=== PATIENT | female | born 1960 | race Caucasian/White ===

== ENCOUNTER 2019-06-05 16:43 | Inpatient (IN) | payer BC ==
[~2019-06-05] VITALS: Ht 160 cm; Wt 90.7 kg
--- NOTE | 2019-06-05 16:55 | NUR ---
PATIENT TO ER #4 AND PLACED ON MEDICAL EDUCATOR, SAO2 AND ABP
--- NOTE | 2019-06-05 16:57 | NUR ---
Patient presents to ER C/O Patient A&Ox4, ambulatory to ER, febrile, skin pink and warm, nausea, vomiting, denies diarrhea, pain 5/10, placed on pulse-ox monitor and hall monitor upon arrival, temp 102. made Dr. Ponce aware. Patient states she has nausea, vomiting and fever. patient denies other health history.
[2019-06-05 16:59] VITALS: BP_SYST 161
--- NOTE | 2019-06-05 17:00 | NUR ---
BRIDGER Ponce at bedside examining patient.
--- NOTE | 2019-06-05 17:05 | NUR ---
# 20 gauge angiocath placed to left AC . Use of asceptic technique. Opsite placed over site. Blood return noted. Blood for lab drawn from site. Flushed with 10 cc of normal saline. No evidence of infiltration noted. Patient tolerated well. Medicated per MD orders. IVF infusing with no s/s of infiltration at this time. Will cont to monitor
[2019-06-05] MEDS ORDERED: NACL 0.9% 1,000 ML IV ONE ×5 (17:15→22:00)
[2019-06-05] MEDS ORDERED: FAMOTIDINE PF 20 MG/2 ML VIAL IVP ONE (17:15)
[2019-06-05] MEDS ORDERED: KETOROLAC TROMETHAMINE 30 MG VIAL IVP ONE (17:15)
[2019-06-05] MEDS ORDERED: ONDANSETRON HCL 4 MG/2 ML VIAL IVP ONE (17:15)
[2019-06-05] MEDS ORDERED: ACETAMINOPHEN 650 MG SUPP.RECT RC ONE ×2 (17:15→17:34)
[2019-06-05 17:27] LABS: BASOPHILS % (AUTO) 0.1 % (0.0-2.0); HEMATOCRIT 40.9 % (36-48); HEMOGLOBIN 13.8 g/dL (12.0-16.0); LYMPHOCYTES # (AUTO) 0.7 K/uL (1.0-5.5); LYMPHOCYTES % (AUTO) 5.8 % (20.5-51.5); MEAN CORPUSCULAR HEMOGLOBIN 31 pg (27-31); MEAN CORPUSCULAR HGB CONC 34 % (32-36); MEAN CORPUSCULAR VOLUME 92 fL (79.0-98.0); MONOCYTES # (AUTO) 0.1 K/uL (0.0-1.0); NEUTROPHILS # (AUTO) 11.4 K/uL (1.8-7.7); NEUTROPHILS % (AUTO) 93.1 % (40.0-70.0); PLATELET COUNT (AUTO) 163 K/uL (130-430); RED BLOOD CELL COUNT(AUTO) 4.47 MIL/uL (4.2-6.2); RED CELL DISTRIBUTION WIDTH 13.8 % (9.0-15.0); WHITE BLOOD COUNT (AUTO) 12.2 K/uL (4.8-10.8)
[2019-06-05 17:38] LABS: CALCIUM 8.8 mg/dL (8.4-11.0); CREATININE 0.92 mg/dL (0.55-1.30)
--- NOTE | 2019-06-05 17:45 | NUR ---
Urine specimen collected and analyzed in ER. Results given to ER .
[2019-06-05 17:46] LABS: ALBUMIN 3.5 g/dL (3.4-4.8); TOTAL BILIRUBIN 0.9 mg/dL (0.0-1.0)
[2019-06-05 18:09] LABS: BILIRUBIN,URINE NEGATIVE (NEGATIVE); BLOOD, URINE 2+ (NEGATIVE); CLARITY/URINE CLOUDY (CLEAR); COLOR,URINE YELLOW (YELLOW); GLUCOSE,URINE NEGATIVE (NEGATIVE); KETONES,URINE NEGATIVE (NEGATIVE); LEUKOCYTE ESTERASE ,URINE 1+ (NEGATIVE); NITRITE, URINE NEGATIVE (NEGATIVE); PROTEIN URINE 1+ (NEGATIVE); UROBILINOGEN,URINE 0.2 (0.2-1.0)
[2019-06-05 18:16] LABS: BACTERIA,URINE FEW /HPF (None Seen); MUCUS,URINE None Seen /LPF (None Seen); WBC,URINE >100 /HPF (0-3)
--- NOTE | 2019-06-05 18:20 | NUR ---
Patient denies taking Home Medications
--- NOTE | 2019-06-05 18:43 | NUR ---
Patient will be admitted to care of DR. PEREYRA. Admitted to MED SURG unit. Will go to room 129B. Belongings list completed. Complete and up to date summary report printed. SBAR report to be given at bedside with opportunity for questions.
--- NOTE | 2019-06-05 19:30 | NUR ---
P 88, B/P 78/56, T 100.1. Pt AAOx4, denies c/o pain or discomfort. NS infusing at 100 mL/hr to patent and secure PIV LAC. Dr. Ponce notified of V/S. Remaining 800 mL NS now infusing at bolus rate.
[2019-06-05] MEDS ORDERED: NACL 0.9% 1,000 ML IV SCH (20:00)
--- NOTE | 2019-06-05 20:04 | NUR ---
P 87, B/P 93/52. Pt denies c/o pain or discomfort. Contacted Dr. Jalloh to update on pt status and V/S. Pt admit status changed to Telemetry, med/surg unit notified.
[2019-06-05] MEDS: NACL 0.9% 1,000 ML IV SCH (20:33)
--- NOTE | 2019-06-05 20:50 | NUR ---
P 91, B/P 84/46. Dr. Jalloh notified. Orders received to administer 1 L NS bolus, transfer to ICU, and consult dr. Salinas for Critical Care. Charge nurse notified.
--- NOTE | 2019-06-05 21:16 | NUR ---
Spoke with Dr. Salinas for Critical Care. New orders received for Zosyn 3.375 Gm IVPB now and q 6hrs, Vancomycin 1 Gm IVPB now, and pharmacy to dose. Order also received to begin Levophed drip and titrate to maintain SBP >90.
[2019-06-05] MEDS ORDERED: VANCOMYCIN HCL 1 GM/NS PREMIX 250 ML IV ONE (21:30)
[2019-06-05] MEDS ORDERED: NOREPINEPHRINE BITARTRATE 4 MG in D5W 246 ML IV PRN ×2 (21:30→21:45)
--- NOTE | 2019-06-05 21:30 | NUR ---
Spoke with Dr. Maria (Covering for Dr. Salinas). Orders received for stat lactic acid and ABG.
--- NOTE | 2019-06-05 21:32 | NUR ---
RT at bedside to obtain ABG.
[2019-06-05] MEDS ORDERED: VANCOMYCIN HCL 1000 MG/VIAL IV ONE (21:39)
[2019-06-05] MEDS ORDERED: NOREPINEPHRINE 4 MG/4 ML VIAL IV ONE (21:39)
[2019-06-05] MEDS ORDERED: PIPERACILLIN/TAZOBACTAM 3.375 GM/VIAL (ZOSYN) IV ONE (21:39)
[2019-06-05] MEDS ORDERED: PIPERACILLIN/TAZO 3.375/DEX-IS 50 ML IV SCH (21:45)
[2019-06-05] MEDS ORDERED: ZOLPIDEM TARTRATE 5 MG TABLET PO PRN (21:45)
[2019-06-05] MEDS ORDERED: DOCUSATE SODIUM 100 MG CAPSULE PO PRN (21:45)
[2019-06-05] MEDS ORDERED: MAGNESIUM SULFATE 50 ML IV PRN (21:45)
[2019-06-05] MEDS ORDERED: MORPHINE 2 MG/ML INJ. SYRINGE IVP PRN ×2 (21:45)
[2019-06-05] MEDS ORDERED: LORazepam 2 MG/ML VIAL IVP PRN (21:45)
[2019-06-05] MEDS ORDERED: MUPIROCIN 2% TOPICAL OINTMENT 22 GM NS PRN (21:45)
--- NOTE | 2019-06-05 21:47 | NUR ---
P 95, B/P 83/42, SPO2 96% RA. Pt denies c/o pain or discomfort. Levophed started at 2 mcg/min to patent and secure PIV LAC.
--- NOTE | 2019-06-05 21:50 | NUR ---
Dr. Maria at bedside speaking with pt.
--- NOTE | 2019-06-05 22:22 | NUR ---
Pt assisted to bedside comode. Pt able to stand, steady gait, denies c/o dizziness.
--- NOTE | 2019-06-05 22:30 | NUR ---
P 78, B/P 86/48, SPO2 97% RA. Levophed drip increased to 4 mcg/min.
[2019-06-05] MEDS: PIPERACILLIN/TAZO 3.375/DEX-IS 50 ML IV SCH (23:01)
--- NOTE | 2019-06-05 23:15 | NUR ---
P 100, B/P 103/46, SPO2 96% RA. Levophed continues to infuse at 4 mcg/min. Pt denies c/o pain or discomfort and no needs verbalized at this time.
--- NOTE | 2019-06-05 23:45 | NUR ---
P 98, B/P 84/55, SPO2 98% RA. Levophed increased to 5 mcg/min. No needs verbalized at this time.
[2019-06-06] VITALS (26 sets, daily range): BP systolic 91–133
--- NOTE | 2019-06-06 00:40 | NUR ---
Patient will be admitted to care of Dr. Jalloh and Dr. Maria. Admitted to ICU unit. Will go to room 4. Belongings list completed. Complete and up to date summary report printed. SBAR report to be given at bedside with opportunity for questions.
--- NOTE | 2019-06-06 00:40 | NUR ---
ADMISSION NOTE PT TRANSFERRED FROM ER VIA GURNEY IN STABLE CONDITION. PT AAOX4 AND ABLE TO VERBALIZE NEEDS. VSS, NO S/S OF ACUTE DISTRESS NOTED. PT ON RA. ST ON MONITOR. R HAND 20G AND LAC 20G PATENT AND INTACT. LEVOPHED DRIP INFUSING @ 5 MCG/MIN. PT DENIES ANY PAIN OR DISCOMFORT AT THIS TIME. HOB ELEVATED, BED IN LOWEST POSITION, CALL LIGHT IN REACH. WILL CONTINUE TO MONITOR PT.
--- NOTE | 2019-06-06 01:00 | NUR ---
TEMPERATURE PT TEMP 102.8. PRN TYLENOL ADMINISTERED AND COOLING MEASURES APPLIED. WILL CONTINUE TO MONITOR PT.
[2019-06-06] MEDS: ACETAMINOPHEN 325 MG TABLET PO PRN (01:10)
[2019-06-06] MEDS: NACL 0.9% 1,000 ML IV SCH ×3 (01:11→19:39)
[2019-06-06] MEDS ORDERED: PIPERACILLIN/TAZOBACTAM 3.375 GM/VIAL (ZOSYN) IV ONE (02:19)
--- NOTE | 2019-06-06 03:40 | NUR ---
NC PT SEEN DESATURATING INTO THE LOW 80s. PT PLACED ON 2L NC AT THIS TIME. O2 SAT 94%. WILL CONTINUE TO MONITOR PT.
--- NOTE | 2019-06-06 04:00 | NUR ---
TEMPERATURE PT TEMPERATURE TRENDING DOWNWARD. CURRENTLY 99.8. WILL CONTINUE TO MONITOR PT.
[2019-06-06] MEDS: PIPERACILLIN/TAZO 3.375/DEX-IS 50 ML IV SCH ×4 (05:04→23:30)
[2019-06-06 05:42] LABS: BASOPHILS % (AUTO) 0.1 % (0.0-2.0); HEMATOCRIT 36.6 % (36-48); HEMOGLOBIN 12.1 g/dL (12.0-16.0); LYMPHOCYTES # (AUTO) 0.8 K/uL (1.0-5.5); MEAN CORPUSCULAR HEMOGLOBIN 31 pg (27-31); MEAN CORPUSCULAR HGB CONC 33 % (32-36); MEAN CORPUSCULAR VOLUME 93 fL (79.0-98.0); MONOCYTES # (AUTO) 0.2 K/uL (0.0-1.0); MONOCYTES % (AUTO) 1.9 % (1.7-9.3); NEUTROPHILS # (AUTO) 12.2 K/uL (1.8-7.7); PLATELET COUNT (AUTO) 122 K/uL (130-430); RED BLOOD CELL COUNT(AUTO) 3.96 MIL/uL (4.2-6.2); RED CELL DISTRIBUTION WIDTH 13.8 % (9.0-15.0); WHITE BLOOD COUNT (AUTO) 13.2 K/uL (4.8-10.8)
[2019-06-06 06:04] LABS: CALCIUM 7.2 mg/dL (8.4-11.0); CREATININE 0.84 mg/dL (0.55-1.30)
--- NOTE | 2019-06-06 06:05 | NUR ---
CONSULTATION PAGED/CALLED Reason for Consultation: Sepsis Person Who was Notified: exchange: Suzi Consulting Physician: Dr Gonzalez Llama Farmer Specialty: ID Ordering Physician:
[2019-06-06 06:07] LABS: POTASSIUM 2.8 mmol/L (3.5-5.1)
[2019-06-06] MEDS: POTASSIUM CHLORIDE 20 MEQ TAB.PRT.SR PO PRN ×2 (06:15→06:53)
--- NOTE | 2019-06-06 06:20 | NUR ---
POTASSIUM K 2.8. K DUR 40 MEQ PRN ORDER FOR K <3.5 ADMINISTERED AT THIS TIME. AWAITING MD CALL BACK TO REPORT CRITICAL RESULTS.
--- NOTE | 2019-06-06 06:23 | NUR ---
DR. DONNA SIMENTAL PAGED AT THIS TIME FOR CRITICAL RESULTS. MESSAGE LEFT ON ANSWERING MACHINE. WILL AWAIT MD CALL BACK.
--- NOTE | 2019-06-06 06:43 | NUR ---
DR. DONNA SIMENTAL MADE AWARE OF CRITICAL LAB RESULTS. ADDITIONAL ORDERS RECEIVED AND WILL BE CARRIED OUT ORDERED. WILL CONTINUE TO MONITOR PT.
[2019-06-06] MEDS ORDERED: POTASSIUM CHLORIDE 20 MEQ TAB.PRT.SR PO ONE (06:45)
--- NOTE | 2019-06-06 07:12 | NUR ---
ENDORSEMENT BEDSIDE REPORT GIVEN TO YOUNG RN USING SBAR APPROACH.
--- NOTE | 2019-06-06 07:15 | NUR ---
Received shift report from night RN using SBAR.
--- NOTE | 2019-06-06 07:45 | NUR ---
Pt A/O x 4. Levophed running at 5mcg/kg/min with NS @ 120. Pt temperature 99.5F. Pt family beside. Bed locked and in lowest position.
--- NOTE | 2019-06-06 08:30 | NUR ---
bedside. Asked Dr Jalloh if order for coagulation study is needed. Per MD no coagulation study needed for prophylaxis Heparin 5000 units therapy. Informed Shaniqua WHITE. Will administer Heparin per MD order.
[2019-06-06] MEDS ORDERED: DEXTROSE 50% JECT 50 ML DISP.SYRIN IVP PRN (08:45)
--- NOTE | 2019-06-06 08:45 | NUR ---
Obtained consent for CT with IV contrast from PT. Son and bedside to translate and confirm information. Copy made an given to PT and Radiology
[2019-06-06] MEDS ORDERED: cefTRIAXone 1 GM in D5W 50 ML IV SCH (09:00)
--- NOTE | 2019-06-06 09:00 | NUR ---
Pt complaining of slight nausea during breakfast. Ate a small amount of jello and went to sleep after. Asked if she wanted Zofran and she said no. Will continue to monitor.
--- NOTE | 2019-06-06 09:15 | NUR ---
Called Dr Staley regarding lab values. Orders received.
[2019-06-06 09:17] LABS: HEMATOCRIT 36.1 % (36-48); HEMOGLOBIN 11.9 g/dL (12.0-16.0); MEAN CORPUSCULAR HEMOGLOBIN 31 pg (27-31); MEAN CORPUSCULAR HGB CONC 33 % (32-36); MEAN CORPUSCULAR VOLUME 92 fL (79.0-98.0); PLATELET COUNT (AUTO) 133 K/uL (130-430); RED CELL DISTRIBUTION WIDTH 14.1 % (9.0-15.0); WHITE BLOOD COUNT (AUTO) 20.1 K/uL (4.8-10.8)
[2019-06-06 09:27] LABS: CALCIUM 7.2 mg/dL (8.4-11.0); CREATININE 0.88 mg/dL (0.55-1.30); POTASSIUM 3.7 mmol/L (3.5-5.1)
--- NOTE | 2019-06-06 09:30 | NUR ---
Pt urinated 750cc using bedside commode. Pt is able to ambulate with assistance.
[2019-06-06] MEDS: HEPARIN SODIUM,PORCINE 5000 UNITS/ML VIAL SUBCUT SCH ×2 (09:31→20:19)
[2019-06-06] MEDS: INSULIN LISPRO SLIDING SCALE 100 UNITS/ML VIAL (humaLOG) SUBCUT PRN ×2 (09:44→11:31)
[2019-06-06] MEDS ORDERED: IOHEXOL 100 ML IV ONE (10:15)
--- NOTE | 2019-06-06 10:18 | NUR ---
Nutrition Update Bola Scale 16 noted. Pt admitted for UTI. Diet: regular BMI: 35.5 kg/m2 RD to follow per nutrition care standards.
--- NOTE | 2019-06-06 10:45 | NUR ---
CT Uneventful transportation to radiology and back in wheel chair. Pt on cardiac specialist with IV pump Pt tolerated well.
[2019-06-06] MEDS ORDERED: VANCOMYCIN HCL 1 GM/NS PREMIX 250 ML IV SCH (11:00)
--- NOTE | 2019-06-06 11:00 | NUR ---
DC Left AC #20 due to infiltration. Noted intact catheter before discarding. Pt tolerated well.
[2019-06-06 11:19] LABS: BAND % (MANUAL) 42 % (0-6); BASOPHILS % (MANUAL) 0 % (0-2); EOSINOPHILS % (MANUAL) 0 % (0-7); LYMPHOCYTES % (MANUAL) 6 % (20-46); METAMYELOCYTES % 2 % (0-0); MONOCYTES % (MANUAL) 3 % (0-11)
[2019-06-06] MEDS: LEVOFLOXACIN 500 MG/D5W 100 ML IV SCH (11:22)
--- NOTE | 2019-06-06 11:30 | NUR ---
IV PLACEMENT: # 22 gauge angiocath placed to left hand. Use of asceptic technique. Opsite placed over site. Blood return noted. Flushed with 10 cc of normal saline. No evidence of infiltration noted. Patient tolerated well.
--- NOTE | 2019-06-06 12:00 | NUR ---
Socail Services: met with pt. for a DCPA and a Social Work interview RN DOCUMENT IMPROVEMENT introduced slef to pt. and pts. son, Shaq at bedside. Pt. looked uncomfortable but stated she was up for the interview. Pt. was kind and able to respond appropriately to RN DOCUMENT IMPROVEMENT's questions. Pt was alert and aware of her condition. Pt. knew where she was. All of her demographic info on the facesheet was confirmed. Pt. was just admitted today. She wants to go back home when she is discharged. She is currently on oxygen. She stated she does not use oxygen at her home. Pt. and Rn. stated she was ambulating and able to use the restroom on her own. Pt. denied ever having any mental health Dx. and denied any suicidal ideations. Pt. resides with her and children. She did not have any questions for RN DOCUMENT IMPROVEMENT. RN DOCUMENT IMPROVEMENT told pt. how she could get a hold of her if she had any questions later. RN DOCUMENT IMPROVEMENT will remain available as needed.
--- NOTE | 2019-06-06 13:30 | NUR ---
Critical value procalcitonin 33.42. Called Dr Jalloh due to not being able reach Dr Staley for page of cell. Dr. Staley called back and informed to repeat test for 0500 06/07[address] Jalloh informed as well.
--- NOTE | 2019-06-06 19:05 | NUR ---
Endorsement given to night RN using SBAR to night RN.
--- NOTE | 2019-06-06 19:20 | NUR ---
Opening Note Patient report received via SBAR from endorsing RN
--- NOTE | 2019-06-06 21:00 | NUR ---
Nursing Note Patient had a bowel movement and urinated using bedside commode, unable to determine amount of output. Patient is able to ambulate with assistance
--- NOTE | 2019-06-06 23:00 | NUR ---
Nursing Note Patient had a small BM and urinated using bedside commode, Patient is able to ambulate with assistance.
[2019-06-07] VITALS (17 sets, daily range): BP systolic 86–129
--- NOTE | 2019-06-07 02:00 | NUR ---
Nursing Note Patient resting in bed with eyes closed, VSS, patient in no distress. IV drip and fluids running at previous rate
--- NOTE | 2019-06-07 04:30 | NUR ---
Nursing Note Patient had a small BM and urinated using the bedside commode, patient was able to ambulate with assistance
[2019-06-07] MEDS: NACL 0.9% 1,000 ML IV SCH ×3 (04:32→22:15)
[2019-06-07] MEDS: PIPERACILLIN/TAZO 3.375/DEX-IS 50 ML IV SCH ×4 (05:28→23:03)
[2019-06-07 06:36] LABS: HEMOGLOBIN 11.2 g/dL (12.0-16.0); MEAN CORPUSCULAR HEMOGLOBIN 31 pg (27-31); MEAN CORPUSCULAR HGB CONC 33 % (32-36); MEAN CORPUSCULAR VOLUME 93 fL (79.0-98.0); PLATELET COUNT (AUTO) 131 K/uL (130-430); RED BLOOD CELL COUNT(AUTO) 3.65 MIL/uL (4.2-6.2); RED CELL DISTRIBUTION WIDTH 14.3 % (9.0-15.0); WHITE BLOOD COUNT (AUTO) 21.3 K/uL (4.8-10.8)
[2019-06-07 06:40] LABS: CREATININE 0.74 mg/dL (0.55-1.30); POTASSIUM 3.8 mmol/L (3.5-5.1)
--- NOTE | 2019-06-07 07:05 | NUR ---
Shift report received from night RN using SBAR.
--- NOTE | 2019-06-07 07:10 | NUR ---
Closing Note Patient report given to receiving RN via SBAR communication
--- NOTE | 2019-06-07 07:45 | NUR ---
AM ASSESSMENT Pt A/O x 4 watching her ipad. Stated she is in no pain but feels nauseated. Will let me know if she wants Zofran later on. NS running at 120cc/hr in right hand. Bed locked and in lowest position with call light in place.
[2019-06-07 08:14] LABS: BAND % (MANUAL) 24 % (0-6); BASOPHILS % (MANUAL) 0 % (0-2); EOSINOPHILS % (MANUAL) 0 % (0-7); LYMPHOCYTES % (MANUAL) 6 % (20-46); MONOCYTES % (MANUAL) 6 % (0-11)
[2019-06-07] MEDS: HEPARIN SODIUM,PORCINE 5000 UNITS/ML VIAL SUBCUT SCH ×2 (08:45→23:07)
--- NOTE | 2019-06-07 09:15 | NUR ---
Telemetry status Dr Dickinson beside. Orders for transfer to Telemetry received.
--- NOTE | 2019-06-07 10:00 | NUR ---
Pt had loose watery BM.
[2019-06-07] MEDS: LEVOFLOXACIN 500 MG/D5W 100 ML IV SCH (10:12)
[2019-06-07] MEDS: ONDANSETRON HCL 4 MG/2 ML VIAL IVP PRN ×2 (10:18→23:12)
--- NOTE | 2019-06-07 10:30 | NUR ---
Pt stated she is nauseated. Administered Zofran and will continue to monitor. Pt son Shaq patricia.
[2019-06-07] MEDS: INSULIN LISPRO SLIDING SCALE 100 UNITS/ML VIAL (humaLOG) SUBCUT PRN ×2 (11:17→23:09)
--- NOTE | 2019-06-07 13:40 | NUR ---
C.diff culture sent in to lab.
--- NOTE | 2019-06-07 14:39 | NUR ---
Dietitian Recommendations * Recommend continuing regular diet * Encourage increase PO intakes * Adhere to pt food preferences INOCENCIA, RD Please refer to Nutrition Assessment for details. Addendum: 06/07/19 at [address] Amended: Links added.
--- NOTE | 2019-06-07 15:30 | NUR ---
Uneventful transfer to room 123B on bed with 2L of oxygen. Endorsement given to Nelson WHITE using SBAR. Personal belongings transferred and medications left in pt tray in medication room. Called son Shaq and informed him of room status.
--- NOTE | 2019-06-07 15:38 | NUR ---
Handoff with Sachin Bueno RN.Nelson Cooney
--- NOTE | 2019-06-07 17:10 | NUR ---
Possible fluid overload as patient is short of breath on exertion to use bedside commode. Intravenous fluid rate maintained at 120 ml per hour. Patient refuses oxygen and is showing 95 % on room air. She says the oxygen is irritating her [nares]. Will continue to monitor. Blood pressure is 108/64 on left forearm sitting after using commode. Patient request to discontinue 20 gauge intravenous site on right hand. Intact catheter tip upon removal and observation. Nelson Cooney RN
[2019-06-08 01:03] VITALS: BP_SYST 139
[2019-06-08] MEDS: PIPERACILLIN/TAZO 3.375/DEX-IS 50 ML IV SCH ×4 (05:14→23:44)
[2019-06-08] MEDS: ONDANSETRON HCL 4 MG/2 ML VIAL IVP PRN (05:16)
[2019-06-08 05:27] LABS: BASOPHILS # (AUTO) 0.1 K/uL (0.0-0.2); BASOPHILS % (AUTO) 0.4 % (0.0-2.0); EOSINOPHILS # (AUTO) 0.1 K/uL (0.0-0.4); EOSINOPHILS % (AUTO) 0.7 % (0.0-4.0); HEMATOCRIT 34.5 % (36-48); HEMOGLOBIN 11.5 g/dL (12.0-16.0); LYMPHOCYTES # (AUTO) 2.2 K/uL (1.0-5.5); LYMPHOCYTES % (AUTO) 12.8 % (20.5-51.5); MEAN CORPUSCULAR HEMOGLOBIN 31 pg (27-31); MEAN CORPUSCULAR HGB CONC 33 % (32-36); MEAN CORPUSCULAR VOLUME 92 fL (79.0-98.0); MONOCYTES # (AUTO) 0.8 K/uL (0.0-1.0); MONOCYTES % (AUTO) 4.8 % (1.7-9.3); NEUTROPHILS # (AUTO) 14.1 K/uL (1.8-7.7); NEUTROPHILS % (AUTO) 81.3 % (40.0-70.0); PLATELET COUNT (AUTO) 144 K/uL (130-430); RED BLOOD CELL COUNT(AUTO) 3.77 MIL/uL (4.2-6.2); WHITE BLOOD COUNT (AUTO) 17.4 K/uL (4.8-10.8)
[2019-06-08 05:36] LABS: CALCIUM 7.9 mg/dL (8.4-11.0); CREATININE 0.7 mg/dL (0.55-1.30); POTASSIUM 3.7 mmol/L (3.5-5.1)
[2019-06-08] MEDS: INSULIN LISPRO SLIDING SCALE 100 UNITS/ML VIAL (humaLOG) SUBCUT PRN ×3 (06:33→17:27)
--- NOTE | 2019-06-08 06:45 | NUR ---
Patient has been nauseated all shift requiring Zofran twice aas ordered Q 6 hours. Has slight amount of yellow color emesis around half a cup. Able to get up by self to bedside commode. BS being covered per protocol. Receiving antibiotics q 6 hours. BP stable in the 120,s Sleeping in intervals through out the night.
--- NOTE | 2019-06-08 07:30 | NUR ---
Patient remains unchanged opened eyes to voice on one occasion. HR continues to drop in the upper 40's but with stimulation goes back up. Grossly edematous with generalized pitty edema 3 plus 4 through out entire body. Continue the care of plan. Continues as a DNR. Awaiting on attempting to have family searched for DNR status.
--- NOTE | 2019-06-08 07:55 | NUR ---
INITIAL NOTE RECEIVED PT IN BED, NO S/S OF DISTRESS OR SOB NOTED,PT HAS NO C/O PAIN AT THIS TIME, PT IN STABLE CONDITION, PT AAOX4, VERBAL, IV CATHETER PATENT, RUNNING IV FLUIDS ORDERED, NO SIGNS OF INFECTION OR INFILTRATION NOTED. BED AT LOWEST POSITION, CALL LIGHT WITHIN REACH, WILL CONTINUE TO MONITOR PT FOR ANY CHANGES, FALL AND SAFETY PRECAUTIONS IN PLACE.
[2019-06-08] MEDS: HEPARIN SODIUM,PORCINE 5000 UNITS/ML VIAL SUBCUT SCH ×2 (08:22→21:37)
[2019-06-08] MEDS: NACL 0.9% 1,000 ML IV SCH ×3 (08:23→23:42)
[2019-06-08 08:30] VITALS: BP_SYST 119
--- NOTE | 2019-06-08 10:20 | NUR ---
ROUNDS PT IN BED, NO S/S OF DISTRESS OR SOB NOTED, PT HAS NO C/O PAIN AT THIS TIME, PT IN STABLE CONDITION, PT TALKING TO VISITORS AT BEDSIDE, WILL CONTINUE TO MONITOR PT FOR ANY CHANGES.
[2019-06-08] MEDS: LEVOFLOXACIN 500 MG/D5W 100 ML IV SCH (10:41)
[2019-06-08 12:38] VITALS: BP_SYST 105
[2019-06-08 16:08] VITALS: BP_SYST 104
--- NOTE | 2019-06-08 16:20 | NUR ---
ROUNDS PT IN BED, NO S/S OF DISTRESS OR SOB NOTED, PT HAS NO C/O PAIN AT THIS TIME, PT IN STABLE CONDITION, PT ON HER IPAD, WILL CONTINUE TO MONITOR PT FOR ANY CHANGES.
--- NOTE | 2019-06-08 18:40 | NUR ---
CLOSING NOTE PT IN BED, NO S/S OF DISTRESS OR SOB NOTED,PT HAS NO C/O PAIN AT THIS TIME, PT IN STABLE CONDITION, PT AAOX4, VERBAL, IV CATHETER PATENT, RUNNING IV FLUIDS ORDERED, NO SIGNS OF INFECTION OR INFILTRATION NOTED. BED AT LOWEST POSITION, CALL LIGHT WITHIN REACH, WILL ENDORSE CARE OF PT TO INCOMING NURSE, FALL AND SAFETY PRECAUTIONS IN PLACE.
[2019-06-09] MEDS: ACETAMINOPHEN 325 MG TABLET PO PRN (04:16)
[2019-06-09] MEDS: PIPERACILLIN/TAZO 3.375/DEX-IS 50 ML IV SCH (06:02)
[2019-06-09 06:13] LABS: BASOPHILS # (AUTO) 0.1 K/uL (0.0-0.2); BASOPHILS % (AUTO) 1.2 % (0.0-2.0); EOSINOPHILS # (AUTO) 0.1 K/uL (0.0-0.4); EOSINOPHILS % (AUTO) 1.3 % (0.0-4.0); HEMATOCRIT 34.8 % (36-48); HEMOGLOBIN 12.1 g/dL (12.0-16.0); LYMPHOCYTES # (AUTO) 2.5 K/uL (1.0-5.5); LYMPHOCYTES % (AUTO) 22.4 % (20.5-51.5); MEAN CORPUSCULAR HEMOGLOBIN 32 pg (27-31); MEAN CORPUSCULAR HGB CONC 35 % (32-36); MEAN CORPUSCULAR VOLUME 92 fL (79.0-98.0); MONOCYTES # (AUTO) 0.8 K/uL (0.0-1.0); MONOCYTES % (AUTO) 7.3 % (1.7-9.3); NEUTROPHILS # (AUTO) 7.4 K/uL (1.8-7.7); NEUTROPHILS % (AUTO) 67.8 % (40.0-70.0); PLATELET COUNT (AUTO) 224 K/uL (130-430); RED BLOOD CELL COUNT(AUTO) 3.78 MIL/uL (4.2-6.2); RED CELL DISTRIBUTION WIDTH 14.4 % (9.0-15.0); WHITE BLOOD COUNT (AUTO) 10.9 K/uL (4.8-10.8)
[2019-06-09 06:17] LABS: CALCIUM 8.2 mg/dL (8.4-11.0); CREATININE 0.68 mg/dL (0.55-1.30); POTASSIUM 3.6 mmol/L (3.5-5.1)
--- NOTE | 2019-06-09 07:05 | NUR ---
Patient improving each day. Getting self up to VS commode with out difficulty. Continues on IV antibiotic therapy afebrile and stable VS. No further nausea this shift. Patient states she is ready to go home.
[2019-06-09 08:00] VITALS: BP_SYST 139
--- NOTE | 2019-06-09 08:00 | NUR ---
initial notes rec patient awake alert with hob elevated. ivf infusing well on the l forearm. no infiotration oted. resp easy and unlabored. no osb noted. bed to the lowest position and side rails up and locked. call light within reached.
[2019-06-09] MEDS: LEVOFLOXACIN 500 MG/D5W 100 ML IV SCH (09:38)
[2019-06-09] MEDS: HEPARIN SODIUM,PORCINE 5000 UNITS/ML VIAL SUBCUT SCH (09:40)
--- NOTE | 2019-06-09 10:00 | NUR ---
rounds due meds were given and stanley well. assisted to the commode at intervals.
[2019-06-09] MEDS ORDERED: cefTRIAXone 1 GM in D5W 50 ML IV SCH (11:15)
[2019-06-09] MEDS ORDERED: ROCPM1 IV (11:27)
--- NOTE | 2019-06-09 11:46 | NUR ---
rounds seen by dr tubbs at bedside and pt will be on 7 days abx at the infusion clinic as ordered. speak with patient's and rn field case manager isabella.
[2019-06-09] MEDS: INSULIN LISPRO SLIDING SCALE 100 UNITS/ML VIAL (humaLOG) SUBCUT PRN (12:40)
[2019-06-09 13:27] VITALS: BP_SYST 148
--- NOTE | 2019-06-09 13:33 | NUR ---
DC PLANNING SPOKE TO PATIENT AND SPOUSE AT , DCP- IV ROCEPHIN 1G DAILY X 7 DAYS, PER ORDER 06/09/2019 TO 06/16/2019. THEY ARE AGREEABLE TO GO IV INF[facility]ION [facility] AT ADDRESS OF [address] [place] [address], TEL # [phone] EXT [phone], SCHEDULED AT 11:00 DAILY TILL 12/17/2019. CALLED INFUSION CENTER # [phone], , LEFT A VM FOR CONFIRMING PATIENT INFUSION TIME AT 11 AM FROM TOMORROW 06/10/2019, DEBT RECOVERY OFFICER IS AWARE OF INFORMATION. ALEJANDRO WHITE CM Addendum: 06/09/19 at 1405 by Nanci Campos RN DCP LATE ENTRY: AT 11:00 AM CALLED IV IN[facility]ION [facility] @# [phone] TO ANTHONY, ANTHONY TOLD ME THAT SHE HAD ALREADY TO SPOKE TO FAMILY ABOUT IV INFUSION AND CO PAY, PATIENT AND SPOUSE AGREED TO GO OUTPATIENT INFUSION CENTER TO COMPLETE ROCEPHIN 1G QD X 7 DAYS TILL 06/16/2019. ALEJANDRO WHITE CM
[2019-06-09 13:50] VITALS: BP_SYST 148
--- NOTE | 2019-06-09 13:50 | NUR ---
closing notes pt was discharged after seen by pillowcase maker. arrangement was made for the infusion center ivpb infusion for 7 days. exit care discussed with patient. follow up appt with pmd dr shen as stated by patient a week after the iv abx infusiion. was wheeled outside via wheelchair and no osb noted. needs attended and stable.
== END 2019-06-09 13:50 | disposition home or self-care (01) | DRG 871 ==
LOC: SED 16:43 → SMU 18:34 → SIC 18:54 → STU 06-07 15:34
PROVIDERS: ADMIT General Practice; ATTEND General Practice
DX: A41.9 Sepsis, unspecified organism (principal); R65.21 Severe sepsis with septic shock; N10 Acute pyelonephritis; E78.5 Hyperlipidemia, unspecified; E83.51 Hypocalcemia; E87.6 Hypokalemia; I10 Essential (primary) hypertension; K21.9 Gastro-esophageal reflux disease without esophagitis; E78.00 Pure hypercholesterolemia, unspecified; R73.9 Hyperglycemia, unspecified; D64.9 Anemia, unspecified; Z79.899 Other long term (current) drug therapy
CPT/HCPCS: 36415; 36600; 71045; 80048; 80053; 81000-TC; 82803-TC; 82962; 83036; 83605; 83690-TC; 83735-TC; 84484; 85007; 85025; 85027; 85651-TC; 86710; 86738; 87040-TC; 87081; 87086; 87186-TC; 87230-TC; 93005; 96361; 96365; 96375; 99291; G0378; J0696; J1644; J1885; J1956; J2060; J2405; J2543; J3370; J3475; J3490; J7030; J7060; Q9967